=== PATIENT | female | born 1960 | race Caucasian/White ===

== ENCOUNTER → 2016-05-02 | Outpatient (CLI) | payer OTHER ==
--- NOTE | 2016-05-02 19:10 | Diagnostic Imaging Report ---
EXAMINATION: Digital mammogram bilateral screening. INDICATION: Screening. COMPARISON: This study was compared to the prior exams of 04/27/2015, 09/01/2013, and 05/06/2012. At this time, there are no current complaints. The current study was also evaluated with a Computer Aided Detection (CAD) system. FINDINGS: The fibroglandular tissue in both breasts is heterogeneously dense. This does limit the sensitivity of this exam. Overall, there does not appear to have been any significant change when compared to the prior study. No primary or secondary sign of malignancy is noted. IMPRESSION: There is no radiographic evidence for malignancy. ACR BI-RADS Category 2: Benign findings. Result letter will be mailed to the patient. Note: At least 10% of breast cancer is not imaged by mammography. Dictated by: Dictated on workstation # [id number]
== END ==
LOC: RAD 09:15
PROVIDERS: ATTEND Family Medicine
DX: Z12.31 Encounter for screening mammogram for malignant neoplasm of breast (principal)

== ENCOUNTER → 2017-05-06 | Outpatient (CLI) | payer OTHER ==
--- NOTE | 2017-05-06 09:10 | Diagnostic Imaging Report ---
Indication: Routine screening. Comparison: Comparison is made with prior exam from 05/02/2016 and 04/27/2015. Findings: Scattered parenchymal densities are noted bilaterally. No dominant mass or malignant-appearing microcalcifications are seen. There are benign calcifications bilaterally. The axillae are unremarkable. Impression: BI-RADS category 2 No mammographic features suspicious for malignancy are identified. ACR BI-RADS Category 2: Benign findings. Result letter will be mailed to the patient. Note: At least 10% of breast cancer is not imaged by mammography. Dictated on workstation # [id number]
== END ==
LOC: RAD 06:49
PROVIDERS: ATTEND Family Medicine
DX: Z12.31 Encounter for screening mammogram for malignant neoplasm of breast (principal)
CPT/HCPCS: 77067

== ENCOUNTER 2018-01-02 08:52 | Outpatient (CLI) | payer OTHER ==
[~2018-01-02] VITALS: Ht 165.1 cm; Wt 92.6 kg
[2018-01-02 09:06] VITALS: BP 118/70
[2018-01-02 09:53] LABS: BASOPHILS % (AUTO) 0 % (0-10); EOSINOPHILS # (AUTO) 0.2 10^3/uL (0.0-0.3); EOSINOPHILS % (AUTO) 2 % (0-10); HEMATOCRIT 41 % (35-52); HEMOGLOBIN 13.5 G/DL (11.5-16.0); LYMPHOCYTES # (AUTO) 1.9 X 10^3 (1.0-4.0); LYMPHOCYTES % (AUTO) 27 % (12-44); MEAN CORPUSCULAR HEMOGLOBIN 29 PG (25-34); MEAN CORPUSCULAR HGB CONC 33 G/DL (32-36); MEAN CORPUSCULAR VOLUME 89 FL (80-99); MEAN PLATELET VOLUME 10.3 FL (7.4-10.4); MONOCYTES # (AUTO) 0.4 X 10^3 (0.0-1.0); MONOCYTES % (AUTO) 6 % (0-12); NEUTROPHILS # (AUTO) 4.4 X 10^3 (1.8-7.8); NEUTROPHILS % (AUTO) 64 % (42-75); PLATELET COUNT 233 10^3/uL (130-400); RED BLOOD COUNT 4.61 10^6/uL (4.35-5.85); RED CELL DISTRIBUTION WIDTH 13.9 % (10.0-14.5); WHITE BLOOD COUNT 6.9 10^3/uL (4.3-11.0)
[2018-01-02 09:54] LABS: BILIRUBIN,URINE NEGATIVE (NEGATIVE); CLARITY,URINE CLEAR; COLOR,URINE YELLOW; GLUCOSE, URINE (UA) NEGATIVE (NEGATIVE); KETONES,URINE NEGATIVE (NEGATIVE); LEUKOCYTE ESTERASE ,URINE NEGATIVE (NEGATIVE); NITRITE,URINE NEGATIVE (NEGATIVE); PH,URINE 7 (5-9); PROTEIN,URINE NEGATIVE (NEGATIVE); UROBILINOGEN,URINE NORMAL (NORMAL)
[2018-01-02 10:02] LABS: BACTERIA,URINE MODERATE /HPF
[2018-01-02 10:05] LABS: PROTHROMBIN TIME PATIENT 13.2 SEC (12.2-14.7)
[2018-01-02 10:12] LABS: ALANINE AMINOTRANSFERASE 13 U/L (0-55); ALBUMIN 4.3 GM/DL (3.2-4.5); ALKALINE PHOSPHATASE 80 U/L (40-136); BUN/CREATININE RATIO 19; CALCIUM 9.7 MG/DL (8.5-10.1); CARBON DIOXIDE 27 MMOL/L (21-32); CHLORIDE 105 MMOL/L (98-107); CREATININE SERUM 0.75 MG/DL (0.60-1.30); GFR ESTIMATED > 60; GLUCOSE 98 MG/DL (70-105); POTASSIUM 3.9 MMOL/L (3.6-5.0); SODIUM 139 MMOL/L (135-145); TOTAL PROTEIN 7.8 GM/DL (6.4-8.2)
[2018-01-02 10:18] LABS: ERYTHROCYTE SEDIMENTATION RATE 17 MM/HR (0-30)
--- NOTE | 2018-01-02 11:31 | Diagnostic Imaging Report ---
Indication: Preop knee arthroplasty PA and lateral chest Heart size and pulmonary vascularity are normal. Lungs are clear. There are no effusions or pneumothoraces. Impression: Negative chest. Dictated by: Dictated on workstation # [id number]
== END 2018-01-02 12:03 | disposition home or self-care (01) ==
LOC: PREOP 08:52
PROVIDERS: ATTEND Orthopaedic Surgery
DX: Z01.811 Encounter for preprocedural respiratory examination (principal); Z01.812 Encounter for preprocedural laboratory examination; Z11.2 Encounter for screening for other bacterial diseases; M17.12 Unilateral primary osteoarthritis, left knee; R53.83 Other fatigue
CPT/HCPCS: 36415; 71046; 80053; 81000; 85025; 85610; 85652; 86850; 86900; 86901; 87081; 93005

== ENCOUNTER 2018-01-14 05:55 | Inpatient (IN) | payer OTHER ==
--- NOTE | 2018-01-05 12:06 | HISTORY AND PHYSICAL ---
DATE OF SERVICE: ADMISSION HISTORY AND PHYSICAL This will be for inpatient admission on 01/14/2018, for left total knee arthroplasty. HISTORY: The patient is a 57-year-old female with complaints of progressively worsening left knee pain. She has tried physical therapy as well as weight loss and activity modifications and anti-inflammatories. She reports marked functional impairment because of the knee. She reports pain on the medial and anterior aspects of the knee. She reports difficulty with stairs and prolonged walking. She denies hip pain, back pain and paresthesias. Of note, she underwent an open partial meniscectomy in the late 1970s. Due to functional impairment and failure to improve with conservative measures, the patient elected to proceed with surgical intervention. REVIEW OF SYSTEMS: No chest pain. No shortness of breath. No dysuria. PAST MEDICAL HISTORY: Unremarkable. PAST SURGICAL HISTORY: Left knee arthroscopy, bilateral carpal tunnel and tubal ligation. FAMILY HISTORY: Significant for diabetes. PRIMARY CARE PROVIDER: Dr. Kam. MEDICATIONS: No current medications. ALLERGIES: SUCCINYLCHOLINE. SOCIAL HISTORY: The patient denies alcohol and tobacco use. RADIOGRAPHS: Revealed complete loss of medial patellofemoral joint space with moderate lateral joint space narrowing and osteophytes in all three compartments. PHYSICAL EXAMINATION: GENERAL: The patient is well developed, well-nourished, in no acute distress. HEENT: Normocephalic, atraumatic. Pupils are equal, round and . CHEST: Clear. NECK: Supple, no lymphadenopathy. LUNGS: Clear to auscultation bilaterally. HEART: Regular rate and rhythm. ABDOMEN: Soft, nontender, nondistended. EXTREMITIES: The patient ambulates with an antalgic gait. There is a well-healed medial incision at her left knee. There is no erythema or warmth. She has a slight effusion. She has marked patellofemoral crepitus with range of motion of 0/3/120. No varus valgus laxity. Negative anterior and posterior drawer. She has mild varus alignment. IMPRESSION: Severe left knee osteoarthritis, unresponsive to conservative measures. PLAN: Left total knee arthroplasty. The risks, benefits, options, ramifications and recovery were discussed at length with the patient. She understands and wishes to proceed. Of note, she will require inpatient admission due to pain management, gait abnormalities and weakness. Job ID: [id number] DocumentID: [id number] Dictated Date: 01/05/2018 10:35:11 Metal Fence Erector Date: 01/05/2018 12:05:16 Dictated By: MAGDY SAMSON MD
[~2018-01-14] VITALS: Ht 165.1 cm; Wt 92.6 kg
--- OUTSIDE RECORDS SUMMARY | 2018-01-14 06:03 | XMS REPORT | Continuity of Care Document ---
Author Author [facility] Organization [facility] Address Unknown Phone Unavailable Allergies Active Description Code Type Severity Reaction Onset Reported/Identified Relationship to Patient Clinical Status Yes succinylcholine [id number] Drug Allergy Unknown N/A 05/25/2015 Yes succinylcholine [id number] Drug Allergy Severe DIFFICULTY WAKI 01/02/2018 Medications There is no data. Problems Date Dx Coded Attending Type Code Diagnosis Diagnosed By 03/03/2014 TENA MCFARLAND MD, Ot V76.12 03/07/2014 TENA MCFARLAND MD Ot V76.12 05/22/2015 TENA MCFARLAND MD, Ot V76.12 05/22/2015 Ot Z12.31 05/22/2015 TENA MCFARLAND MD, Ot V76.12 05/22/2015 Ot Z12.31 05/29/2015 HARMONY RO, RHONDA Traylor Ot Z12.11 ENCOUNTER FOR SCREENING FOR MALIGNANT NE 05/03/2016 TENA MCFARLAND MD, Ot Z12.31 ENCNTR SCREEN MAMMOGRAM FOR MALIGNANT NE 04/29/2017 TENA MCFARLAND MD, Ot Z12.31 ENCNTR SCREEN MAMMOGRAM FOR MALIGNANT NE 05/02/2017 TENA MCFARLAND MD, Ot Z12.31 ENCNTR SCREEN MAMMOGRAM FOR MALIGNANT NE 05/07/2017 TENA MCFARLAND MD, Ot Z12.31 ENCNTR SCREEN MAMMOGRAM FOR MALIGNANT NE 05/07/2017 TENA MCFARLAND MD, Ot Z12.31 ENCNTR SCREEN MAMMOGRAM FOR MALIGNANT NE 01/02/2018 MALI RO, MAGDY Balderas Ot M17.12 UNILATERAL PRIMARY OSTEOARTHRITIS, LEFT 01/02/2018 MAGDY SAMSON MD Ot R53.83 OTHER FATIGUE 01/02/2018 MAGDY SAMSON MD Ot Z01.811 ENCOUNTER FOR PREPROCEDURAL RESPIRATORY 01/02/2018 MAGDY SAMSON MD Ot Z01.812 ENCOUNTER FOR PREPROCEDURAL LABORATORY E 01/02/2018 MAGDY SAMSON MD, Ot Z11.2 ENCOUNTER FOR SCREENING FOR OTHER BACTER 01/05/2018 MAGDY SAMSON MD, Ot M17.12 UNILATERAL PRIMARY OSTEOARTHRITIS, LEFT 01/05/2018 MAGDY SAMSON MD, Ot R53.83 OTHER FATIGUE 01/05/2018 MAGDY SAMSON MD, Ot Z01.811 ENCOUNTER FOR PREPROCEDURAL RESPIRATORY 01/05/2018 MAGDY SAMSON MD, Ot Z01.812 ENCOUNTER FOR PREPROCEDURAL LABORATORY E 01/05/2018 MAGDY SAMSON MD, Ot Z11.2 ENCOUNTER FOR SCREENING FOR OTHER BACTER 01/14/2018 BARTOLO RO, TENA Celestin Ot Z12.31 ENCNTR SCREEN MAMMOGRAM FOR MALIGNANT NE Procedures There is no data. Results Test Result Range Complete urinalysis with reflex to culture - 01/02/18 09:35 Urine color determination YELLOW NRG Urine clarity determination CLEAR NRG Urine pH measurement by test strip 7 5-9 Specific gravity of urine by test strip 1.010 1.016- 1.022 Urine protein assay by test strip, semi-quantitative NEGATIVE NEGATIVE Urine glucose detection by automated test strip NEGATIVE NEGATIVE Erythrocytes detection in urine sediment by light microscopy NEGATIVE NEGATIVE Urine ketones detection by automated test strip NEGATIVE NEGATIVE Urine nitrite detection by test strip NEGATIVE NEGATIVE Urine total bilirubin detection by test strip NEGATIVE NEGATIVE Urine urobilinogen measurement by automated test strip (mass/volume) NORMAL NORMAL Urine leukocyte esterase detection by dipstick NEGATIVE NEGATIVE Automated urine sediment erythrocyte count by microscopy (number/high power field) NONE NRG Automated urine sediment leukocyte count by microscopy (number/high power field ) NONE NRG Bacteria detection in urine sediment by light microscopy MODERATE NRG Squamous epithelial cells detection in urine sediment by light microscopy 2-5 NRG Crystals detection in urine sediment by light microscopy NONE NRG Casts detection in urine sediment by light microscopy NONE NRG Mucus detection in urine sediment by light microscopy NEGATIVE NRG Complete urinalysis with reflex to culture NO NRG Complete blood count (CBC) with automated white blood cell (WBC) differential - 01/02/18 09:40 Blood leukocytes automated count (number/volume) 6.9 10*3/uL 4.3-11.0 Blood erythrocytes automated count (number/volume) 4.61 10*6/uL 4.35-5.85 Venous blood hemoglobin measurement (mass/volume) 13.5 g/dL 11.5-16.0 Blood hematocrit (volume fraction) 41 % 35-52 Automated erythrocyte mean corpuscular volume 89 [foz_us] 80-99 Automated erythrocyte mean corpuscular hemoglobin (mass per erythrocyte) 29 pg 25-34 Automated erythrocyte mean corpuscular hemoglobin concentration measurement ( mass/volume) 33 g/dL 32-36 Automated erythrocyte distribution width ratio 13.9 % 10.0-14.5 Automated blood platelet count (count/volume) 233 10*3/uL 130-400 Automated blood platelet mean volume measurement 10.3 [foz_us] 7.4-10.4 Automated blood neutrophils/100 leukocytes 64 % 42-75 Automated blood lymphocytes/100 leukocytes 27 % 12-44 Blood monocytes/100 leukocytes 6 % 0-12 Automated blood eosinophils/100 leukocytes 2 % 0-10 Automated blood basophils/100 leukocytes 0 % 0-10 Blood neutrophils automated count (number/volume) 4.4 10*3 1.8-7.8 Blood lymphocytes automated count (number/volume) 1.9 10*3 1.0-4.0 Blood monocytes automated count (number/volume) 0.4 10*3 0.0-1.0 Automated eosinophil count 0.2 10*3/uL 0.0-0.3 Automated blood basophil count (count/volume) 0.0 10*3/uL 0.0-0.1 PT panel in platelet poor plasma by coagulation assay - 01/02/18 09:40 Prothrombin time (PT) in platelet poor plasma by coagulation assay 13.2 s 12.2-14.7 INR in platelet poor plasma or blood by coagulation assay 1.0 0.8-1.4 Comprehensive metabolic panel - 01/02/18 09:40 Serum or plasma sodium measurement (moles/volume) 139 mmol/L 135-145 Serum or plasma potassium measurement (moles/volume) 3.9 mmol/L 3.6-5.0 Serum or plasma chloride measurement (moles/volume) 105 mmol/L 98-107 Carbon dioxide 27 mmol/L 21-32 Serum or plasma anion gap determination (moles/volume) 7 mmol/L 5-14 Serum or plasma urea nitrogen measurement (mass/volume) 14 mg/dL 7-18 Serum or plasma creatinine measurement (mass/volume) 0.75 mg/dL 0.60-1.30 Serum or plasma urea nitrogen/creatinine mass ratio 19 NRG Serum or plasma creatinine measurement with calculation of estimated glomerular filtration rate > NRG Serum or plasma glucose measurement (mass/volume) 98 mg/dL 70-105 Serum or plasma calcium measurement (mass/volume) 9.7 mg/dL 8.5-10.1 Serum or plasma total bilirubin measurement (mass/volume) 1.0 mg/dL 0.1-1.0 Serum or plasma alkaline phosphatase measurement (enzymatic activity/volume) 80 U/L 40-136 Serum or plasma aspartate aminotransferase measurement (enzymatic activity/ volume) 16 U/L 5-34 Serum or plasma alanine aminotransferase measurement (enzymatic activity/volume ) 13 U/L 0-55 Serum or plasma protein measurement (mass/volume) 7.8 g/dL 6.4-8.2 Serum or plasma albumin measurement (mass/volume) 4.3 g/dL 3.2-4.5 CALCIUM CORRECTED 9.5 mg/dL 8.5-10.1 Erythrocyte sedimentation rate by westergren method - 01/02/18 09:40 Erythrocyte sedimentation rate by westergren method 17 mm 0-30 Blood type T Indirect antibody screen panel - 01/02/18 09:40 ABO+Rh group OP NRG Blood group antibody screen NEGATIVE NRG Methicillin resistant Staphylococcus aureus (MRSA) screening culture - 09:40 Methicillin resistant Staphylococcus aureus (MRSA) screening culture NEG NRG Encounters ACCT No. Visit Date/Time Discharge Status Pt. Type Provider Facility Loc./Unit Complaint [id number] 01/02/2018 08:52:00 01/02/2018 12:03:00 DIS Outpatient MALI RO, MAGDY Balderas [facility] PREOP LEFT KNEE OSTEOARTHRITIS [id number] 05/06/2017 06:49:00 05/06/2017 23:59:59 CLS Outpatient TENA MCFARLAND MD [facility] RAD SCREENING MAMMO [id number] 05/02/2016 09:15:00 05/02/2016 23:59:59 CLS Outpatient ETNA MCFARLAND MD [facility] RAD SCREENING [id number] 05/29/2015 07:11:00 05/29/2015 13:24:00 DIS Outpatient HARMONY RO, RHONDA Traylor [facility] SDC SCREENING [id number] 05/25/2015 05:54:00 05/25/2015 23:59:59 CLS Outpatient RHONDA ANTUNEZ MD [facility] PREOP [id number] 09/01/2013 08:58:00 09/01/2013 23:59:59 CLS Outpatient BARTOLO RO, TENA Celestin [facility] RAD [id number] 08/20/2012 11:55:00 08/20/2012 23:59:59 CLS Outpatient [id number] 01/14/2018 05:55:00 ACT Inpatient MALI RO, MAGDY Balderas [facility] SURG LEFT KNEE OSTEOARTHRITIS [id number] 04/27/2015 10:11:00 Document Registration
[2018-01-14] MEDS ORDERED: ONDANSETRON 4 MG/2 ML (SDV) Z0FRAN ONE (06:34)
[2018-01-14] MEDS ORDERED: LACTATED RINGERS 1,000 ML IV ONE (06:34)
[2018-01-14] MEDS ORDERED: ROCURONIUM 10 MG/ML 5 ML SYRINGE IV ONE (06:34)
[2018-01-14] MEDS ORDERED: fentaNYL INJECTION 100 MCG/2 ML AMP ONE (06:34)
[2018-01-14] MEDS ORDERED: LIDOCAINE PF 2% 5 ML (XYLOCAINE) VIAL ONE (06:34)
[2018-01-14] MEDS ORDERED: proPOfol 200 MG/20 ML (DIPRIVAN) VIAL IV ONE (06:34)
[2018-01-14] MEDS ORDERED: MIDAZOLAM 2 MG/2 ML (VERSED) VIAL ONE (06:35)
[2018-01-14] MEDS ORDERED: DEXAMETHASONE 10 MG/ML (DECADRON) 1 ML VIAL ONE (06:40)
[2018-01-14] MEDS ORDERED: SEVOFLURANE (ULTANE) 15 ML INHAL SOLN ONE ×7 (06:40→09:12)
[2018-01-14] MEDS ORDERED: NS (IVPB) 50 ML ONE (06:43)
[2018-01-14] MEDS ORDERED: CEFUROXIME 1.5 GM (ZINACEF) VIAL ONE (06:43)
[2018-01-14] MEDS ORDERED: ONDANSETRON 4 MG/2 ML (SDV) Z0FRAN IVP PRN ×2 (07:15→09:30)
[2018-01-14] MEDS ORDERED: diphenhydrAMINE 50 MG/ML INJ (BENADRYL) IVP PRN (07:15)
[2018-01-14] MEDS ORDERED: morphine PCA 100 MG/100 ML BAG IV PRN (07:15)
[2018-01-14] MEDS ORDERED: ACETAMINOPHEN 325 MG TABLET PO PRN (07:15)
--- NOTE | 2018-01-14 07:27 | Progress Note-Post Operative ---
Post-Operative Progess Note Surgeon (s)/Road Oiler (s) Surgeon MAGDY SAMSON MD Road Oiler: [place] Pre-Operative Diagnosis left knee primary osteoarthritis Post-Operative Diagnosis left knee primary osteoarthritis Procedure & Operative Findings Date of Procedure 01/14/18 Procedure Performed/Findings left total knee arthroplasty Anesthesia Type GETA Estimated Blood Loss Estimated blood loss (mL): minimal Specimens/Packing Specimens Removed none Packing: none MAGDY SAMSON MD Jan 14, 2018 07:27
--- NOTE | 2018-01-14 07:27 | Progress Note-Pre Operative ---
Pre-Operative Progress Note H&P Reviewed The H&P was reviewed, patient examined and no changes noted. Date Seen by Provider: Jan 14, 2018 Time Seen by Provider: 07:20 Date H&P Reviewed: Jan 14, 2018 Time H&P Reviewed: 07:11 Pre-Operative Diagnosis: left knee primary osteoarthritis MAGDY SAMSON MD Jan 14, 2018 07:27
[2018-01-14] MEDS ORDERED: OXYC1TAB87 PO (07:29)
--- NOTE | 2018-01-14 07:32 | D/C HH Face to Face Order ---
D/C Face to Face Orders Instructions for Patient Patient Instructions/FollowUp: three weeks Physician to follow Patient: three weeks Discharge Diet for Home: Regular Diet Patient Data-Allergies,Ht & Wt Patient Allergies: Coded Allergies: succinylcholine (Verified Allergy, Severe, DIFFICULTY WAKINE UP, WAS ON VENT, 01/02/18) Height (Feet): 5 Height (Inches): 5.00 Weight (Pounds): 204 Weight (Ounces): 3.0 Home Health Need/Face to Face Date of Face to Face: Jan 14, 2018 Clinical Findings: Instability, Muscle weakness, Pain with ambulation I have seen Pt [id number]: Yes Discharged To: Home Diagnosis/Conditions: left total knee arthroplasty Patient is Homebound due to: Darvin fall risk due to instabilty, Muscle weakness , Pain w/ambulation Homebound Status Due to the above stated illness, injury or surgical procedure (medical condition or diagnosis) and associated clinical findings, the patient is homebound because of his/her inability to leave home except with aid of a supportive device and/or person AND leaving the home requires a considerable and taxing effort or is medically contraindicated. Pt req the following assistanc: Walker Home Health Nursing Orders Home Health Services Order: Physical Therapy-Evaluate & Treat Therapy Orders Therapy Orders: Physical Therapy, PT to assess for OT Therapy Specific Orders: Eval assistive deivces, Teach enviro modifications/ safety, Gait training, Increase strength/endurance, Restore ROM DC left knee misha and apply steri strips on 01/28/18 Certify Stmt I certify that this patient is under my care and that I, a nurse practitioner or a physician; a clinical lab assistant working with me, had a face to face encounter that - meets the physician face to face encounter requirements with this patient as dated. MAGDY SAMSON MD Jan 14, 2018 07:32
[2018-01-14] MEDS ORDERED: ROPIVACAINE 5MG/ML 30ML VIAL ONE (07:39)
[2018-01-14] MEDS ORDERED: LACTATED RINGERS 1,000 ML IV PRN (07:52)
[2018-01-14] MEDS ORDERED: CEFUROXIME INJECTION 1,500 MG in NS (IVPB) 50 ML IV ONE (08:00)
[2018-01-14] MEDS ORDERED: INTRA-ARTICULAR IU ONE ×5 (08:30)
[2018-01-14] MEDS ORDERED: NEOSTIGMINE 1 MG/ML 5 ML SYRINGE ONE (08:58)
[2018-01-14] MEDS ORDERED: TRANEXAMIC ACID 100 MG/ML 10 ML INJECTION IV ONE (08:58)
[2018-01-14] MEDS ORDERED: GLYCOPYRROLATE 0.2 MG/ML (ROBINUL) 2 ML VIAL ONE (08:58)
[2018-01-14] MEDS ORDERED: HYDROmorphone 2 MG/ML VIAL (DILAUDID) IV ONE (09:30)
[2018-01-14] MEDS ORDERED: MEPERIDINE (DEMEROL) INJ 50 MG/ML IVP ONE (09:30)
[2018-01-14] MEDS ORDERED: morphine INJ 10 MG/ML 1ML (SYR OR VIAL) IVP ONE (09:30)
--- NOTE | 2018-01-14 09:54 | Diagnostic Imaging Report ---
INDICATION: Osteoarthritis. 2 views were obtained. FINDINGS: There are postsurgical changes of left knee arthroplasty. Hardware is in satisfactory position. Alignment is normal. There is no fracture or dislocation. IMPRESSION: Stable postsurgical changes of the left knee arthroplasty. Dictated by: Dictated on workstation # [id number]
--- NOTE | 2018-01-14 10:23 | Progress Note-Standard ---
Standard Progress Note Progress Notes/Assess & Plan Date Seen by a Provider: Jan 14, 2018 Time Seen by a Provider: 10:10 Progress/Assessment & Plan post op check no complaints denies paresthesias radiographs--HW well positioned without fracture LLE--2 plus DP and PT pulse with brisk cap refill. Intact DF and PF of toes and ankle. Sensation intact throughout s/p LTKA mobilize as able MAGDY SAMSON MD Jan 14, 2018 10:23
[2018-01-14 10:41] VITALS: BP 114/57
[2018-01-14] MEDS: NS IV 1000 ML 1,000 ML IV SCH ×2 (11:24→21:14)
[2018-01-14] MEDS: SENNA W/DOCUSATE (SENOKOT S) TABLET PO SCH ×2 (11:39→19:36)
[2018-01-14 12:00] VITALS: BP 114/55
--- NOTE | 2018-01-14 14:40 | Physical Therapy Evaluation ---
PT Evaluation-General Medical Diagnosis Admission Date Jan 14, 2018 at 05:55 Medical Diagnosis: s/p L TKA Onset Date: Jan 14, 2018 Therapy Diagnosis Therapy Diagnosis: impaired mobility, strength, ROM s/p L TKA Height/Weight Height (Feet): 5 Height (Inches): 5.00 Weight (Pounds): 204 Weight (Ounces): 3.0 Precautions Precautions/Isolations: Fall Prevention, Standard Precautions Weight Bear Status Right Lower Extremity: Right Full Weight Bearing Left Lower Extremity: Left Weight Bearing/Tolerated Referral Physician: Saige Reason for Referral: Evaluation/Treatment Medical History Current History s/p L TKA Reviewed History: Yes Social History Home: Single Level Current Living Status: Spouse Entry Into Home: Stairs With Railing PT Steps Into Home: 1 PT Steps Inside Home: 2 Prior/Core FIM Prior Level of Function Functional [place] Measure 0=Not Assessed/NA 4=Minimal Assistance 1=Total Assistance 5=Supervision or Setup 2=Maximal Assistance 6=Modified [place] 3=Moderate Assistance 7=Complete [place] Bed Mobility: 7 Transfers (B,C,W/C) (FIM): 7 Gait: 7 PT Evaluation-Current Subjective pt in bed pre tx, agrees to PT, pain 3/10 at rest, 8/10 w/ activity L knee Pt/Family Goals to be independent at home Objective Patient Orientation: Person, Place, Time ROM/Strength ROM Lower Extremities RLE WFL L knee +5 extension, 75 flexion Strength Lower Extremities RLE grossly 4/5 Neuromuscular (Tone, Coordination, Reflexes) NT Sensory Vision: Functional Hearing: Functional Sensation Right Lower Extremit: Intact Sensation Left Lower Extremity: Intact Transfers Functional [place] Measure 0=Not Assessed/NA 4=Minimal Assistance 1=Total Assistance 5=Supervision or Setup 2=Maximal Assistance 6=Modified [place] 3=Moderate Assistance 7=Complete [place] Transfers (B, C, W/C) (FIM): 4 Scootin Rollin Supine to/from Sit: 5 Sit to/from Stand: 4 supine<->sit SBA, sit<->stand CGA for safety Gait Mode of Locomotion: Walk Anticipated Mode of Locomotion: Walk Gait (FIM): 1 Distance (FIM): 1=up to 49 ft Distance: 30' Gait Level of Assist: 4 Gait Persons Needed: 1 Gait Assistive Device: FWW Comments/Gait Description pt ambulates 30' w/ CGA, slow w/ short steps, but steady, pt appears to be able to ambulate further but felt very nauseous so discontinued after 30' Balance Sitting Static: Normal Sitting Dynamic: Normal Standing Static: Normal Standing Dynamic: Normal Treatment TKA protocol - AP, HS, SLR, SAQs, QS x10 Assessment/Needs impaired mobility, strength, and ROM s/p L TKA, pt has good bed mobility and WB in LLE Rehab Potential: Fair PT Short Term Goals Short Term Goals Time Frame: Jan 21, 2018 Transfers (B,C,W/C) (FIM): 5 Gait (FIM): 4 Gait Distance Comment: >200' Gait Level of Assist: 4 Gait Assistive Device: FWW PT Plan Problem List Problem List: Activity Tolerance, Functional Strength, Safety, Balance, Gait, Transfer, Bed Mobility, ROM Treatment/Plan Treatment Plan: Continue Plan of Care Treatment Plan: Bed Mobility, Education, Functional Activity Iram, Functional Strength, Gait, Safety, Therapeutic Exercise, Transfers Treatment Duration: Jan 21, 2018 Frequency: 11 times per week Estimated Hrs Per Day: .25 hour per day (15-30') Patient and/or Family Agrees t: Yes Safety Risks/Education Patient Education: Gait Training, Transfer Techniques, Correct Positioning, Safety Issues Teaching Recipient: Patient Teaching Methods: Demonstration, Discussion Response to Teaching: Reinforcement Needed Discharge Recommendations Plan progress functional ROM, gait, and transfers Therapy D/C Recommendations: Home w/ Family Support Time/GCodes Time In: 1410 Time Out: 1435 Total Billed Treatment Time: 25 Total Billed Treatment 1 visit EVL 15' EX 10' TRE DO PT Jan 14, 2018 14:40
[2018-01-14] MEDS ORDERED: FLU QUADRIvalent (5+ YOA) 2018-2019 (AFLURIA) 0.5 ML IM ONE (15:00)
--- NOTE | 2018-01-14 15:50 | OPERATIVE REPORT ---
DATE OF SERVICE: 01/14/2018 PREOPERATIVE DIAGNOSIS: Left knee primary osteoarthritis. POSTOPERATIVE DIAGNOSIS: Left knee primary osteoarthritis. PROCEDURE: Left total knee arthroplasty. SURGEON: Virgil Moulton MD. HARNESS CUTTER: ROBIN Braun, who assisted throughout the procedure and closed the incision. ANESTHESIA: General endotracheal by Ruben Cruz CRNA. TOURNIQUET TIME: Approximately 68 minutes at 300 mmHg. ESTIMATED BLOOD LOSS: Minimal. DRAINS: None. COMPLICATIONS: None. POSTOPERATIVE PLAN: Routine total knee arthroplasty protocol. MATERIALS: MicroPort cemented size 4 femur with a cemented size 4 tibia and a 12 mm insert with a cemented size 32 patellar button. The patient was transferred to recovery room awake and in stable condition. STATEMENT OF MEDICAL NECESSITY: The patient is a 57-year-old female with longstanding progressive left knee osteoarthritis. She had severe medial and patellofemoral arthrosis with bony sclerosis noted in both compartments in varus alignment. She had undergone treatment with injections, anti-inflammatories and activity modifications without relief. Due to functional impairment and failure to improve with conservative measures, the patient elected to proceed with surgical intervention. DESCRIPTION OF PROCEDURE: After risks and benefits of the procedure were discussed and questions were answered, an informed consent was signed and placed on chart. The operative site was confirmed in the preoperative holding area and initialed by the surgeon. The patient was then transported to the operating room, and after adequate levels of general endotracheal anesthetic were obtained and timeout was called confirming the operative site, the left lower extremity was then prepped and draped in the usual sterile fashion with the leg elevated and the knee flexed. Tourniquet was inflated to 300 mmHg. A standard anterior approach was utilized. Hemostasis was obtained with cautery. A medial parapatellar arthrotomy was performed leaving 1 cm cuff on the patella for later reattachment. A portion of the fat pad was resected and the ACL was resected. The intramedullary guide was passed into the distal femur and the cutting block was placed. A cut was made and the femur was sized to a size 4. The 4 cutting block was placed parallel to the epicondylar axis and cuts were made from posterior to anterior. A subperiosteal release was then carefully performed of the posterior distal femur as well as proximal medial tibia, being careful to stay on the bony surface. Intramedullary guide was then passed into the tibia. The cutting block was placed. The drop sarath transected the intermalleolar axis and a cut was made. The 4 baseplate was positioned and again the drop sarath transected the intermalleolar axis. This was prepared with a drill and keel punch. The femoral trial was placed and the trochlear cut was made. A 12-mm insert was placed and the patella was prepared using the freehand technique by resecting 10 mm off the undersurface. Peg guide was placed and the peg holes were drilled. The 32 trial was placed. With the trials, the knee had full extension and greater than 120 degrees of flexion with gravity. The patella tracked well. There was no anterior/posterior laxity in flexion or extension. There was trace valgus laxity in full extension, otherwise no varus or valgus laxity throughout range of motion. The trials were removed. The joint was irrigated with pulse lavage. Periarticular block was placed in the posterior capsule, medial and lateral retinaculum and extensor mechanism as well as the subcutaneous tissues. The joint was further irrigated with pulse lavage. Bone ends were irrigated and dried and the tibial baseplate was cemented into position. Excessive cement was removed. The superior surface was irrigated and dried and the polyethylene insert was placed. The distal femur was irrigated and dried and the femoral prosthesis was cemented into position. Excessive cement was removed. The knee was brought out into full extension while the cement had cured. The undersurface of the patella was irrigated and dried and the patellar button was cemented into position. Excessive cement was removed. Once the cement had cured, the knee was taken through a range of motion. Full extension was obtained, 120 degrees of flexion with gravity was easily obtained. The patella tracked well. There was no anterior/posterior laxity in flexion or extension. There was trace valgus laxity in full extension, but otherwise no varus or valgus laxity. The joint was further irrigated with pulse lavage. The arthrotomy was closed with #2 Tevdek in [id number] interrupted fashion. The patella tracked well and the repair was stable with flexion and extension. The subcutaneous tissues were irrigated and dried. 0 Vicryl was used for the deep subcutaneous tissue, 2-0 Vicryl for the superficial subcutaneous tissue, misha were used on the skin. A soft dressing was applied, the tourniquet was deflated and the patient was transported to the recovery room awake and in stable condition. Job ID: [id number] DocumentID: [id number] Dictated Date: 01/14/2018 09:21:53 Art Editor Date: 01/14/2018 15:49:34 Dictated By: VIRGIL MOULTON MD
[2018-01-14 16:50] VITALS: BP 136/63
--- NOTE | 2018-01-14 17:10 | Consultation ---
History of Present Illness History of Present Illness Patient Consulted On(beck/time) 01/14/18 17:06 Date Seen by Provider: Jan 14, 2018 Time Seen by Provider: 17:00 Reason for Visit: Left knee replacement History of Present Illness 57-year-old female admitted this morning for left total knee replacement due to severe degenerative joint disease. She is in her normal state of health and voices no medical complaints. She currently is in good spirits and has no complaints other than she is slightly nauseated after the surgery but it's already improved. Allergies and Home Medications Allergies Coded Allergies: succinylcholine (Verified Allergy, Severe, DIFFICULTY WAKINE UP, WAS ON VENT, 01/02/18) Home Medications Oxycodone HCl/Acetaminophen 1 Each Tablet, 1 EACH PO Q4H PRN for PAIN-MODERATE Prescribed by: MAGDY SAMSON on 01/14/18 1681 Patient Home Medication List Home Medication List Reviewed: Yes Past Dkizeoj-Dhpwct-Xsvnsy Hx Patient Social History Alcohol Use: Denies Use Recreational Drug Use: No Smoking Status: Never a Smoker Recent Foreign Travel: No Contact w/Someone Who Travel: No Recent Infectious Disease Expo: No Recent Hopitalizations: No Seasonal Allergies Seasonal Allergies: No Past Medical History Surgeries: Yes (LEFT KNEE CASRTLIDGE REMOVED, BOTH WRISTS) Respiratory: No Cardiac: No Neurological: No Sexually Transmitted Disease: No HIV/AIDS: No Genitourinary: No Gastrointestinal: No Musculoskeletal: Yes (MILD ARTHRITIS IN HANDS) Arthritis Endocrine: No HEENT: Yes (GLASSES) Loss of Vision: Bilateral Hearing Impairment: Denies Cancer: No Psychosocial: No Integumentary: No Blood Disorders: No Adverse Reaction/Blood Tranf: No (N/A) Review of Systems-General Constitutional: see HPI Physical Exam-General Problems Physical Exam Vital Signs Vital Signs - First Documented 01/14/18 01/14/18 10:30 10:41 Temp 96.4 Pulse 77 Resp 14 B/P (MAP) 114/57 (76) Pulse Ox 98 O2 Delivery OxyMask O2 Flow Rate 2.00 Capillary Refill : Less Than 3 Seconds General Appearance: no apparent distress Eyes: Bilateral Eye Normal Inspection HEENT: pharynx normal Neck: supple Respiratory: lungs clear Cardiovascular: regular rate, rhythm Gastrointestinal: soft Rectal: deferred Back: normal inspection Extremities: other (Patient has splint on left knee) Neurologic/Psychiatric: radiography technician II-XII nml as tested, alert, oriented x 3 Skin: normal color Assessment/Plan Assessment/Plan Admission Diagnosis/Plan 1. Severe degenerative joint disease of the left knee -Consultation appreciated. -We'll continue to follow along with you. -I have made patient aware that should any medical issues become apparent during the course of her stay, I will come and evaluate her. -For now she does not have any home medications that she takes on a daily basis. She does have available already written Zofran for nausea.- Admission Status: Inpatient Order (span 2 midnights) Reason for Inpatient Admission: Left total knee replacement Clinical Quality Measures DVT/VTE Risk/Contraindication: Risk Factor Score Per Nursin RFS Level Per Nursing on Admit: 3=High TENA MCFARLAND MD Jan 14, 2018 17:10
[2018-01-14] MEDS: CEFUROXIME INJECTION 750 MG in NS (IVPB) 50 ML IV SCH (17:15)
[2018-01-14 19:15] VITALS: BP 122/59
[2018-01-15] MEDS: NS IV 1000 ML 1,000 ML IV SCH ×2 (00:38→13:02)
[2018-01-15] MEDS: CEFUROXIME INJECTION 750 MG in NS (IVPB) 50 ML IV SCH (00:38)
[2018-01-15 00:40] VITALS: BP 124/59
[2018-01-15 04:52] VITALS: BP 116/60
[2018-01-15 06:02] LABS: HEMOGLOBIN 11.1 G/DL (11.5-16.0)
[2018-01-15] MEDS: MULTIVIT W/MINERALS TAB (THERAGRAN M) PO SCH (06:29)
--- NOTE | 2018-01-15 07:42 | Progress Note (SOAP) ---
Subjective Date Seen by a Provider: Jan 15, 2018 Time Seen by a Provider: 07:40 Subjective/Events-last exam No complaints. Good appetite. Objective Exam Vital Signs Date Time Temp Pulse Resp B/P (MAP) Pulse Ox O2 Delivery O2 Flow Rate FiO2 01/15/18 04:52 98.0 92 18 116/60 (78) 98 Room Air 01/15/18 00:40 97.8 87 18 124/59 (80) 100 Room Air 01/14/18 21:00 18 01/14/18 21:00 Room Air 01/14/18 19:15 97.1 90 18 122/59 (80) 95 Room Air 01/14/18 16:50 97.4 82 16 136/63 (87) 100 Room Air 01/14/18 12:00 97.5 72 16 114/55 (74) 95 OxyMask 2.00 01/14/18 10:41 96.4 77 14 114/57 (76) 98 OxyMask 2.00 01/14/18 10:30 98 OxyMask 2.00 I & O 01/15/18 07:00 Intake Total 2450 ml Output Total 3200 ml Balance -750 ml Capillary Refill : Less Than 3 Seconds General Appearance: No Apparent Distress Respiratory: Lungs Clear Cardiovascular: Regular Rate, Rhythm Results Lab Laboratory Tests 01/15/18 05:10: Hemoglobin 11.1L, Hematocrit 35 Assessment/Plan Assessment/Plan Assess & Plan/Chief Complaint 1. Severe degenerative joint disease of the left knee -Consultation appreciated. -We'll continue to follow along with you. -I have made patient aware that should any medical issues become apparent during the course of her stay, I will come and evaluate her. -For now she does not have any home medications that she takes on a daily basis. She does have available already written Zofran for nausea.- 01/15 -doing well. tolerating regular diet without nausea. regular IS Clinical Quality Measures DVT/VTE Risk/Contraindication: Risk Factor Score Per Nursin RFS Level Per Nursing on Admit: 3=High TENA MCFARLAND MD Jan 15, 2018 07:42
--- NOTE | 2018-01-15 07:59 | Progress Note-Standard ---
Standard Progress Note Progress Notes/Assess & Plan Date Seen by a Provider: Jan 15, 2018 Time Seen by a Provider: 07:58 Progress/Assessment & Plan post op check no complaints denies paresthesias radiographs--HW well positioned without fracture LLE--2 plus DP and PT pulse with brisk cap refill. Intact DF and PF of toes and ankle. Sensation intact throughout s/p LTKA mobilize as able Final Diagnosis No complaints Vital Signs Date Time Temp Pulse Resp B/P (MAP) Pulse Ox O2 Delivery O2 Flow Rate FiO2 01/15/18 04:52 98.0 92 18 116/60 (78) 98 Room Air 01/15/18 00:40 97.8 87 18 124/59 (80) 100 Room Air 01/14/18 21:00 18 01/14/18 21:00 Room Air 01/14/18 19:15 97.1 90 18 122/59 (80) 95 Room Air 01/14/18 16:50 97.4 82 16 136/63 (87) 100 Room Air 01/14/18 12:00 97.5 72 16 114/55 (74) 95 OxyMask 2.00 01/14/18 10:41 96.4 77 14 114/57 (76) 98 OxyMask 2.00 01/14/18 10:30 98 OxyMask 2.00 I & O 01/15/18 07:00 Intake Total 2450 ml Output Total 3200 ml Balance -750 ml Laboratory Tests Test 01/15/18 05:10 Range/Units Hemoglobin 11.1 L 11.5-16.0 G/DL Hematocrit 35 35-52 % LLE--dressing intact. NVI distally No calf tenderness. s/p LTKA doing well PT/OT MAGDY SAMSON MD Jan 15, 2018 07:59
[2018-01-15] MEDS ORDERED: ASPIRIN E.C. 81 MG (ECOTRIN) TAB PO SCH (08:00)
[2018-01-15] MEDS: oxyCODONE/APAP 5/325MG (PERCOCET 5) TABLET PO PRN ×5 (08:29→17:24)
[2018-01-15] MEDS: SENNA W/DOCUSATE (SENOKOT S) TABLET PO SCH ×2 (08:29→20:36)
[2018-01-15] MEDS: ENOXAPARIN 30 MG/0.3 ML (LOVENOX) SYR SC SCH ×2 (08:29→20:36)
[2018-01-15 08:37] VITALS: BP 112/50
--- NOTE | 2018-01-15 08:43 | Anesthesia-General Post-Op ---
General Significant Intra-Op Events Notes good pain relief with adductor canal block. Patient Condition Mental Status/LOC: Same as Preop Cardiovascular: Satisfactory Nausea/Vomiting: Absent Respiratory: Satisfactory Pain: Controlled Complications: Absent Post Op Complications Complications None Follow Up Care/Instructions Patient Instructions None needed. Anesthesia/Patient Condition Patient Condition Patient is doing well, no complaints, stable vital signs, no apparent adverse anesthesia problems. No complications reported per nursing. EVA HILL CRNA Jan 15, 2018 08:43
--- NOTE | 2018-01-15 09:01 | Physical Therapy Daily Note ---
PT Daily Note-Current Subjective Pt in restroom upon arrival. Pt agrees to PT and OIL SALES AND SERVICE REP assists pt at SBA to EOB. Pain Numeric Pain Scale: 10-Worst Possible Pain Location: Left Location Body Site: Knee Pain Description: Ache, Tightness Mental Status Patient Orientation: Person, Place, Time, Situation Attachments: Polar Pack, Other-See Comments (CPM), IV Transfers Functional [place] Measure 0=Not Assessed/NA 4=Minimal Assistance 1=Total Assistance 5=Supervision or Setup 2=Maximal Assistance 6=Modified [place] 3=Moderate Assistance 7=Complete IndependenceIRFPAI Quality Coding Scale 6 Independent with activity with or without an assistive device 5 Patient requires set up or clean up by helper. Patient completes activity by themselves 4 Supervision or touching assist (CGA). [place] provide cues , steadying assist 3 The helper provides less than half the effort to complete the activity 2 The helper provides more than half the effort to complete the activity 1 Dependent. The helper does all the effort to complete an activity 7 Patient refused to complete or attempt activity 9 The patient did not perform the activity before the current illness or injury 88 Not attempted due to Medical conditions or safety concerns Scootin Supine to/from Sit: 5 Sit to/from Stand: 5 Weight Bearing Right Lower Extremity: Right Full Weight Bearing Left Lower Extremity: Left Weight Bearing/Tolerated Gait Training Distance (FIM): 3=150 ft Gait Assistive Device: FWW Pt walks with slightly flexed L knee. Pt walks with normalized levi and doesn't demonstrate pain. Treatments Pt ambulates from restroom to EOB for SLOPE HOIST OPERATOR to take vitals. Nurse gives morning meds & Lovenox shot. Pt transfers from EOB using FWW at SBA then ambulates in hallway before returning to room. Pt lays Supine in bed and is able to scoots self up in bed for positioning to apply CPM (60 degrees) & polar pack. Pt resting with all needs met at end of tx. Assessment Current Status: Good Progress Pt reports pain but it does not limit pt's participation with PT. Pt moving better after stiffness at beginning of session. PT Short Term Goals Short Term Goals Time Frame: Jan 21, 2018 Transfers (B,C,W/C) (FIM): 5 Gait (FIM): 4 Gait Distance Comment: >200' Gait Level of Assist: 4 Gait Assistive Device: FWW PT Plan Problem List Problem List: Activity Tolerance, Functional Strength, Gait Treatment/Plan Treatment Plan: Continue Plan of Care Treatment Plan: Bed Mobility, Education, Functional Activity Iram, Functional Strength, Gait, Safety, Therapeutic Exercise, Transfers Treatment Duration: Jan 21, 2018 Frequency: 11 times per week Estimated Hrs Per Day: .25 hour per day (15-30') Patient and/or Family Agrees t: Yes Safety Risks/Education Patient Education: Gait Training, Transfer Techniques, Reviewed Use of Ice, Correct Positioning, Safety Issues Teaching Recipient: Patient Teaching Methods: Discussion Response to Teaching: Verbalize Understanding Time/GCodes Time In: 825 Time Out: 850 Total Billed Treatment Time: 25 Total Billed Treatment 1, GT (10m) & FA (15m) G Codes Necessary: SHANNAN Hector PTA Jan 15, 2018 09:01
[2018-01-15 12:00] VITALS: BP 111/56
--- NOTE | 2018-01-15 14:46 | Physical Therapy Daily Note ---
PT Daily Note-Current Subjective Patient in bed pre tx, agrees to PT, has pain of 10/10 when ambulating. Appearance Patient BTB post tx with nurse call, phone, tray, all needs met. Polar care on. Mental Status Patient Orientation: Normal For Age Attachments: Polar Pack, IV Transfers Functional [place] Measure 0=Not Assessed/NA 4=Minimal Assistance 1=Total Assistance 5=Supervision or Setup 2=Maximal Assistance 6=Modified [place] 3=Moderate Assistance 7=Complete IndependenceIRFPAI Quality Coding Scale 6 Independent with activity with or without an assistive device 5 Patient requires set up or clean up by helper. Patient completes activity by themselves 4 Supervision or touching assist (CGA). [place] provide cues , steadying assist 3 The helper provides less than half the effort to complete the activity 2 The helper provides more than half the effort to complete the activity 1 Dependent. The helper does all the effort to complete an activity 7 Patient refused to complete or attempt activity 9 The patient did not perform the activity before the current illness or injury 88 Not attempted due to Medical conditions or safety concerns Transfers (B, C, W/C) (FIM): 5 Scootin Rollin Supine to/from Sit: 5 Sit to/from Stand: 5 Steady, no LOB, occasional cues for positioning. Weight Bearing Right Lower Extremity: Right Full Weight Bearing Left Lower Extremity: Left Weight Bearing/Tolerated Gait Training Gait (FIM): 5 Distance: 200' Gait Level of Assist: 5 Gait Persons Needed: 1 Gait Assistive Device: FWW Good step-through ambulation, brisk pace, slightly flexed left knee. Exercises Supine Ex: Ankle pumps, Quad Set, Heel Slides, Short Arc Quads, Straight leg raise Supine Reps: 10 Treatments bed mobility and transfers, ambulation, functional strengthening, ROM Assessment Current Status: Fair Progress improving ambulation PT Short Term Goals Short Term Goals Time Frame: Jan 21, 2018 Transfers (B,C,W/C) (FIM): 5 Gait (FIM): 4 Gait Distance Comment: >200' Gait Level of Assist: 4 Gait Assistive Device: FWW PT Plan Problem List Problem List: Activity Tolerance, Functional Strength, Safety, Balance, Gait, Transfer, Bed Mobility, ROM Treatment/Plan Treatment Plan: Continue Plan of Care Treatment Plan: Bed Mobility, Education, Functional Activity Iram, Functional Strength, Gait, Safety, Therapeutic Exercise, Transfers Treatment Duration: Jan 21, 2018 Frequency: 11 times per week Estimated Hrs Per Day: .25 hour per day (15-30') Patient and/or Family Agrees t: Yes Safety Risks/Education Patient Education: Gait Training, Transfer Techniques, Correct Positioning, Safety Issues Teaching Recipient: Patient Teaching Methods: Demonstration, Discussion Response to Teaching: Reinforcement Needed Time/GCodes Time In: 1420 Time Out: 1438 Total Billed Treatment Time: 18 Total Billed Treatment 1 visit GT 18' MARIO MARIE PT Jan 15, 2018 14:45
--- NOTE | 2018-01-15 15:45 | Occupational Therapy Eval ---
OT Evaluation-General/PLF Medical Diagnosis Admission Date Jan 14, 2018 at 05:55 Medical Diagnosis: s/p L TKA Onset Date: Jan 14, 2018 Therapy Diagnosis Therapy Diagnosis: decr self care, decr funct mobility Height/Weight Height (Feet): 5 Height (Inches): 5.00 Weight (Pounds): 204 Weight (Ounces): 3.0 Precautions Precautions/Isolations: Fall Prevention, Standard Precautions Safety Interventions: None Weight Bear Status Weight Bearing Restriction: Weight Bearing/Tolerated Location Restriction: L LE Referral Physician: Saige Referral Reason: Evaluation/Treatment Medical History Pertinent Medical History: Arthritis Additional Medical History DJD. Bilateral CTS. L knee scope. Mild arthritis hands. Current History Elective L total knee replacement Reviewed History: Yes Social History Home: Single Level Current Living Status: Spouse Entry Into Home: Stairs With Railing Steps Into Home: 1 Steps Inside Home: 2 ADL-Prior Level of Function ADL PLOF Comments Pt reported that she was able to manage all of her basic self care needs prior to admission except that her knee hurt and it took longer at times to do tasks. She managed her home, drove and works in payroll at a local [employer] DME/Equipment: Shower Hose Senior Applications Architect, Tub/Shower, Toilet/Riser OT Current Status Subjective Pt seen in room, up in bed, agreeable to OT. Pain 10-11/10 in knee when CPM is moving. Appearance Alert, cooperative Mental Status/Objective Patient Orientation: Person, Place, Time, Situation Attachments: IV Current Glasses/Contacts: Yes Hearing Aids: No Dentures/Partials: No Hand Dominance: Left Upper Extremity ROM Grossly WFL bilat Upper Extremity Strength Grossly 5/5 bilat ADL-Treatment ADL-Current Pt reported that she has had no difficulty feeding herself. She goes to the bathroom with SBA and has no difficulty getting on/off taller toilet. She hasn' t tried regular clothing but anticipates difficulty tying shoes. Pt educ on use of elastic shoe laces. Also pt educ on using BSC over toilet or toilet riser when she goes home. Pt educ modified technique for getting in/out of bathtub. Functional [place] Measure 0=Not Assessed/NA 4=Minimal Assistance 1=Total Assistance 5=Supervision or Setup 2=Maximal Assistance 6=Modified [place] 3=Moderate Assistance 7=Complete IndependenceIRFPAI Quality Coding Scale 6 Independent with activity with or without an assistive device 5 Patient requires set up or clean up by helper. Patient completes activity by themselves 4 Supervision or touching assist (CGA). [place] provide cues , steadying assist 3 The helper provides less than half the effort to complete the activity 2 The helper provides more than half the effort to complete the activity 1 Dependent. The helper does all the effort to complete an activity 7 Patient refused to complete or attempt activity 9 The patient did not perform the activity before the current illness or injury 88 Not attempted due to Medical conditions or safety concerns Education OT Patient Education: Modified ADL techniques, Purpose of tx/functional activities, Rehab process, Use of adapted equipment Teaching Recipient: Patient Teaching Methods: Discussion Response to Teaching: Verbalize Understanding OT Short Term Goals Short Term Goals Transfers (B,C,W/C) (FIM): 5 OT Wind Operations Supervisor Goals Senior Living Goals Time Frame: Jan 17, 2018 Eating (FIM): 7 Grooming(FIM): 6 Bathing(FIM): 5 Upper Body Dressing(FIM): 5 Lower Body Dressing(FIM): 5 Toileting(FIM): 6 Toilet/Commode Transfer(FIM): 6 Shower Transfer(FIM): 5 Additional Goals: 1-Demonstrate ADL Tasks, 2-Verbalize Understanding, 3- ImproveStrength/Iram 1=Demonstrate adherence to instructed precautions during ADL tasks. 2=Patient will verbalize/demonstrate understanding of assistive devices/ modifications for ADL. 3=Patient will improve strength/tolerance for activity to enable patient to perform ADL's. OT Education/Plan Problem List/Assessment Assessment: Dependent Transfers, Impaired Self-Care Skills Pt would benefit from skilled OT to increase her independence in basic self care to allow her to safely return home with family support. Discharge Recommendations Plan/Recommendations: Continue POC Therapy D/C Recommendations: Home w/ Family Support Treatment Plan/Plan of Care Treatment,Training & Education: Yes Patient would benefit from OT for education, treatment and training to promote independence in ADL's, mobility, safety and/or upper extremity function for ADL' s. Plan of Care: ADL Retraining, Functional Mobility Treatment Duration: Jan 17, 2018 Frequency: 3 times per week Estimated Hrs Per Day: .5 hour per day Agreement: Yes Rehab Potential: Good Time/GCodes Start Time: 14:00 Stop Time: 14:20 Total Time Billed (hr/min): 20 Billed Treatment Time visit, 20 minutes evaluation low intensity LIBBY CHILDERS OT Jan 15, 2018 15:45
[2018-01-15 16:15] VITALS: BP 109/56
[2018-01-15 20:00] VITALS: BP 121/58
[2018-01-16 00:02] VITALS: BP 132/59
[2018-01-16 04:02] VITALS: BP 130/62
[2018-01-16] MEDS: oxyCODONE/APAP 5/325MG (PERCOCET 5) TABLET PO PRN ×5 (06:09→16:18)
[2018-01-16] MEDS: MULTIVIT W/MINERALS TAB (THERAGRAN M) PO SCH (06:09)
[2018-01-16 06:34] LABS: HEMOGLOBIN 9.7 G/DL (11.5-16.0)
--- NOTE | 2018-01-16 07:09 | Progress Note-Standard ---
Standard Progress Note Progress Notes/Assess & Plan Date Seen by a Provider: Jan 16, 2018 Time Seen by a Provider: 07:08 Progress/Assessment & Plan post op check no complaints denies paresthesias radiographs--HW well positioned without fracture LLE--2 plus DP and PT pulse with brisk cap refill. Intact DF and PF of toes and ankle. Sensation intact throughout s/p LTKA mobilize as able Final Diagnosis no complaints Vital Signs Date Time Temp Pulse Resp B/P (MAP) Pulse Ox O2 Delivery O2 Flow Rate FiO2 01/16/18 04:02 98.3 99 18 130/62 (84) 95 Room Air 01/16/18 00:02 98.4 97 18 132/59 (83) 96 Room Air 01/15/18 21:00 18 01/15/18 21:00 Room Air 01/15/18 20:00 98.6 95 18 121/58 (79) 95 Room Air 01/15/18 16:15 98.2 92 18 109/56 (73) 96 Room Air 01/15/18 12:00 99.4 92 16 111/56 (74) 95 Room Air 01/15/18 08:47 Room Air 01/15/18 08:37 99.7 107 16 112/50 (70) 100 Room Air I & O 01/16/18 07:00 Intake Total 2310 ml Output Total 1800 ml Balance 510 ml Laboratory Tests Test 01/16/18 06:20 Range/Units Hemoglobin 9.7 L 11.5-16.0 G/DL Hematocrit 31 L 35-52 % LLE--incision clean and dry. No calf tenderness. Neg Madison's s/p LTKA doing well DC later today if doing well MAGDY SAMSON MD Jan 16, 2018 07:09
--- NOTE | 2018-01-16 07:14 | DISCHARGE SUMMARY ---
DATE OF SERVICE: DIAGNOSIS: Left knee primary osteoarthritis. PROCEDURE: Left total knee arthroplasty. SUMMARY: The patient is a 57-year-old female who underwent a left total knee arthroplasty on the day of admission. Postoperatively, she did very well. At the time of discharge, her wound was clean and dry. She had no calf tenderness. Negative Homans sign. She has cleared physical therapy. She was tolerating a diet well and tolerating pain with oral pain medication. CONDITION ON DISCHARGE: Good. DISCHARGE DIET: Regular. FOLLOWUP: Followup is in three weeks. ACTIVITY: Weightbearing as tolerated with a walker. DISCHARGE MEDICATIONS: Percocet as needed for pain and aspirin one per day for 4 weeks. Job ID: [id number] DocumentID: [id number] Dictated Date: 01/16/2018 07:06:40 Solvent Process Extractor Operator Date: 01/16/2018 07:14:23 Dictated By: MAGDY SAMSON MD
[2018-01-16] MEDS ORDERED: morphine INJ 4 MG/ML 1 ML (VIAL/SYRINGE) IVP PRN (07:15)
[2018-01-16 08:00] VITALS: BP 122/59
[2018-01-16] MEDS: SENNA W/DOCUSATE (SENOKOT S) TABLET PO SCH (08:07)
[2018-01-16] MEDS: ENOXAPARIN 30 MG/0.3 ML (LOVENOX) SYR SC SCH (08:07)
[2018-01-16] MEDS ORDERED: ASPIRIN E.C. 81 MG (ECOTRIN) TAB PO SCH (09:00)
--- NOTE | 2018-01-16 10:59 | Physical Therapy Daily Note ---
PT Daily Note-Current Subjective Pt. stats she is so pleased that she has no pain to speak of and is feeling so much stronger and better Pain Numeric Pain Scale: 0-No Pain Mental Status Patient Orientation: Normal For Age Transfers Functional Traill Measure 0=Not Assessed/NA 4=Minimal Assistance 1=Total Assistance 5=Supervision or Setup 2=Maximal Assistance 6=Modified Traill 3=Moderate Assistance 7=Complete IndependenceIRFPAI Quality Coding Scale 6 Independent with activity with or without an assistive device 5 Patient requires set up or clean up by helper. Patient completes activity by themselves 4 Supervision or touching assist (CGA). [place] provide cues , steadying assist 3 The helper provides less than half the effort to complete the activity 2 The helper provides more than half the effort to complete the activity 1 Dependent. The helper does all the effort to complete an activity 7 Patient refused to complete or attempt activity 9 The patient did not perform the activity before the current illness or injury 88 Not attempted due to Medical conditions or safety concerns in out bed and chair all Mod I. Weight Bearing Right Lower Extremity: Right Full Weight Bearing Left Lower Extremity: Left Weight Bearing/Tolerated Gait Training Gait Assistive Device: FWW [id number] SBA no LOB, instructions for equal step length, heel strike ,knee flexion, toe off etc , pt. then with more normalized gait Stair Training Stair Training: Handrails/: 2 handrails up down 4 steps with instruction in sequence with good safety and demonstrated good technique Exercises Supine Ex: Ankle pumps, Quad Set, Heel Slides, Short Arc Quads, Straight leg raise (x7 indep) Supine Reps: 15 Seated Therapy Exercises: Ankle pumps, Sit to stand, Long arc quads, Hip flexion Seated Reps: 12 NuStep Minutes: 10 NuStep Workload: 1 Treatments emphasis on knee extension and flexion on Nustep Assessment Current Status: Good Progress 10 to 68 degrees active ROM PT Short Term Goals Short Term Goals Time Frame: Jan 21, 2018 Transfers (B,C,W/C) (FIM): 5 Gait (FIM): 4 Gait Distance Comment: >200' Gait Level of Assist: 4 Gait Assistive Device: FWW PT Plan Treatment/Plan Treatment Plan: Continue Plan of Care Treatment Plan: Bed Mobility, Education, Functional Activity Iram, Functional Strength, Gait, Safety, Therapeutic Exercise, Transfers Treatment Duration: Jan 21, 2018 Frequency: 11 times per week Estimated Hrs Per Day: .25 hour per day (15-30') Patient and/or Family Agrees t: Yes Safety Risks/Education Patient Education: Gait Training, Transfer Techniques, Steps, Correct Positioning, Disease Process, Safety Issues Teaching Recipient: Patient Teaching Methods: Demonstration, Discussion Response to Teaching: Verbalize Understanding, Return Demonstration, Reinforcement Needed Time/GCodes Time In: 835 Time Out: 900 Total Billed Treatment Time: 25 Total Billed Treatment 1,GT15m,EX10m G Codes Necessary: No JOSE TORIBIO RELAY ADJUSTER Jan 16, 2018 10:59
--- NOTE | 2018-01-16 11:00 | Occupational Ther Daily Note ---
OT Current Status-Daily Note Subjective Pt alert, lying in bed with CPM on L LE. Pt agrees to therapy. No c/o pain. States that she will be going home when her gets off work at 4pm. Mental Status/Objective Patient Orientation: Person, Place, Time, Situation Functional Traverse Measure 0=Not Assessed/NA 4=Minimal Assistance 1=Total Assistance 5=Supervision or Setup 2=Maximal Assistance 6=Modified Traverse 3=Moderate Assistance 7=Complete Traverse ADL-Treatment Pt given elastic shoe laces and place in shoes. Educated and demonstrated donning shoes. Pt declined to attempt due to L LE in CPM. Discussed and educated pt on safety with FWW at home and bathtub transfers. Pt verbalized understanding of all topics. After therapy, pt lying in bed with call light/ phone in reach. All needs met in room. Education OT Patient Education: Safety issues, Transfer techniques, Use of adapted equipment Teaching Recipient: Patient Teaching Methods: Demonstration, Discussion Response to Teaching: Verbalize Understanding OT Short Term Goals Short Term Goals Transfers (B,C,W/C) (FIM): 5 1=Demonstrate adherence to instructed precautions during ADL tasks. 2=Patient will verbalize/demonstrate understanding of assistive devices/ modifications for ADL. 3=Patient will improve strength/tolerance for activity to enable patient to perform ADL's. OT Industrial Hygiene Technician Goals [facility] Goals Time Frame: Jan 17, 2018 Eating (FIM): 7 Grooming(FIM): 6 Bathing(FIM): 5 Upper Body Dressing(FIM): 5 Lower Body Dressing(FIM): 5 Toileting(FIM): 6 Toilet/Commode Transfer(FIM): 6 Shower Transfer(FIM): 5 Additional Goals: 1-Demonstrate ADL Tasks, 2-Verbalize Understanding, 3- ImproveStrength/Iram 1=Demonstrate adherence to instructed precautions during ADL tasks. 2=Patient will verbalize/demonstrate understanding of assistive devices/ modifications for ADL. 3=Patient will improve strength/tolerance for activity to enable patient to perform ADL's. OT Education/Plan Problem List/Assessment Pt would benefit from skilled OT to increase her independence in basic self care to allow her to safely return home with family support. Discharge Recommendations Plan/Recommendations: Discharge/Goals Met Treatment Plan/Plan of Care Patient would benefit from OT for education, treatment and training to promote independence in ADL's, mobility, safety and/or upper extremity function for ADL' s. Plan of Care: ADL Retraining, Functional Mobility Treatment Duration: Jan 17, 2018 Frequency: 3 times per week Estimated Hrs Per Day: .5 hour per day Agreement: Yes Rehab Potential: Good Time/GCodes Start Time: 10:30 Stop Time: 10:45 Total Time Billed (hr/min): 15 Billed Treatment Time 1 visit-FA 1 (15 min) TRE MARTINEZ Jan 16, 2018 11:00
[2018-01-16 12:31] VITALS: BP 128/61
--- NOTE | 2018-01-16 13:37 | Physical Therapy Daily Note ---
PT Daily Note-Current Subjective Pt. pleasant and agrees toRx. Looking forward to going home later today Pain Numeric Pain Scale: 0-No Pain Mental Status Patient Orientation: Normal For Age Transfers Functional [place] Measure 0=Not Assessed/NA 4=Minimal Assistance 1=Total Assistance 5=Supervision or Setup 2=Maximal Assistance 6=Modified [place] 3=Moderate Assistance 7=Complete IndependenceIRFPAI Quality Coding Scale 6 Independent with activity with or without an assistive device 5 Patient requires set up or clean up by helper. Patient completes activity by themselves 4 Supervision or touching assist (CGA). [place] provide cues , steadying assist 3 The helper provides less than half the effort to complete the activity 2 The helper provides more than half the effort to complete the activity 1 Dependent. The helper does all the effort to complete an activity 7 Patient refused to complete or attempt activity 9 The patient did not perform the activity before the current illness or injury 88 Not attempted due to Medical conditions or safety concerns all TRFs Mod I Weight Bearing Right Lower Extremity: Right Full Weight Bearing Left Lower Extremity: Left Weight Bearing/Tolerated Gait Training 300ft x 2 FWW Mod I observed no LOB, equal step length, slow with concentration on heel strike and toe off and good fluid stability Exercises Supine Ex: Ankle pumps, Quad Set, Glut sets, Heel Slides, Short Arc Quads, Straight leg raise Supine Reps: 20 Assessment Current Status: Good Progress 5-72 degrees AROM PT Short Term Goals Short Term Goals Time Frame: Jan 21, 2018 Transfers (B,C,W/C) (FIM): 5 Gait (FIM): 4 Gait Distance Comment: >200' Gait Level of Assist: 4 Gait Assistive Device: FWW PT Plan Treatment/Plan Treatment Plan: Continue Plan of Care Treatment Plan: Bed Mobility, Education, Functional Activity Iram, Functional Strength, Gait, Safety, Therapeutic Exercise, Transfers Treatment Duration: Jan 21, 2018 Frequency: 11 times per week Estimated Hrs Per Day: .25 hour per day (15-30') Patient and/or Family Agrees t: Yes Safety Risks/Education Patient Education: Gait Training, Transfer Techniques Time/GCodes Time In: 1305 Time Out: 1335 Total Billed Treatment Time: 30 Total Billed Treatment 1,GT20m,EX10m G Codes Necessary: No JOSE TORIBIO LITHOGRAPHIC PRESS FEEDER Jan 16, 2018 13:37
[2018-01-16 16:59] VITALS: BP 128/61
== END 2018-01-16 16:59 | disposition home health service (06) | DRG 470 ==
LOC: SURG 05:55 → 4TH 10:28
PROVIDERS: ADMIT Orthopaedic Surgery; ATTEND Orthopaedic Surgery
PROC: 0SRD0J9 Replacement of Left Knee Joint with Synthetic Substitute, Cemented, Open Approach (ICD-10-PCS; principal; 2018-01-14 07:32)
DX: M17.12 Unilateral primary osteoarthritis, left knee (principal)
CPT/HCPCS: 36415; 73560; 85014; 85018; 86850; 86900; 86901; 94664

== ENCOUNTER 2018-04-01 16:18 | Outpatient (RCR) | payer OTHER ==
[~2018-04-01 16:18] MED LIST: OXYC1TAB87 PO
== END 2018-04-01 17:00 | disposition home or self-care (01) ==
PROVIDERS: ATTEND Orthopaedic Surgery
DX: Z47.1 Aftercare following joint replacement surgery (principal); Z96.652 Presence of left artificial knee joint

== ENCOUNTER → 2018-05-11 | Outpatient (CLI) | payer OTHER ==
--- NOTE | 2018-05-11 11:39 | Diagnostic Imaging Report ---
INDICATION: Routine screening. COMPARISON: 05/06/2017 and 05/02/2016. TECHNIQUE: 2D and 3D bilateral screening mammography was performed with CAD. FINDINGS: Scattered fibroglandular densities are identified bilaterally. The parenchymal pattern is stable. No dominant mass or malignant-appearing microcalcifications are seen. There are benign calcifications bilaterally. The axillae are unremarkable. IMPRESSION: No mammographic features suspicious for malignancy are identified. ACR BI-RADS Category 2: Benign findings. Result letter will be mailed to the patient. Note: At least 10% of breast cancer is not imaged by mammography. Dictated by: Dictated on workstation # [id number]
== END ==
LOC: RAD 08:22
PROVIDERS: ATTEND Family Medicine
DX: Z12.31 Encounter for screening mammogram for malignant neoplasm of breast (principal)
CPT/HCPCS: 77067

== ENCOUNTER → 2019-05-12 | Outpatient (CLI) | payer OTHER ==
--- NOTE | 2019-05-12 09:26 | Diagnostic Imaging Report ---
INDICATION: Routine screening. Comparison is made with prior mammogram 05/11/2018 and 05/06/2017. 2-D and 3-D bilateral screening mammography was performed with CAD. Scattered fibroglandular densities are identified bilaterally. There are benign calcifications in both breasts. No dominant mass or malignant appearing microcalcifications are seen. Axillae are unremarkable. IMPRESSION: BI-RADS Category 2 No mammographic features suspicious for malignancy are identified. Dictated by: Dictated on workstation # [id number]
== END ==
LOC: RAD 07:27
PROVIDERS: ATTEND Family Medicine
DX: Z12.31 Encounter for screening mammogram for malignant neoplasm of breast (principal)
CPT/HCPCS: 77067

== ENCOUNTER → 2020-05-17 | Outpatient (CLI) | payer OTHER ==
--- NOTE | 2020-05-17 10:37 | Diagnostic Imaging Report ---
INDICATION: Routine screening. Comparison is made prior exam from 05/12/2019 and 05/11/2018. 2-D and 3-D bilateral screening mammography was performed with CAD. Scattered fibro-glandular densities are identified bilaterally. There are benign calcifications in both breasts. No mass or malignant appearing microcalcifications are seen. Axillae are unremarkable. IMPRESSION: BI-RADS Category 2 No mammographic features suspicious for malignancy are identified. ACR BI-RADS Category 2: Benign findings. Result letter will be mailed to the patient. Note: At least 10% of breast cancer is not imaged by mammography. Dictated by: Dictated on workstation # [id number]
== END ==
LOC: RAD 07:30
PROVIDERS: ATTEND Family Medicine
DX: Z12.31 Encounter for screening mammogram for malignant neoplasm of breast (principal)
CPT/HCPCS: 77063; 77067

== ENCOUNTER → 2021-05-23 | Outpatient (CLI) | payer OTHER ==
--- NOTE | 2021-05-24 09:25 | Diagnostic Imaging Report ---
Digital mammogram bilateral screening This study was compared to the prior exam of 05/17/2020, 05/12/2019 and 05/11/2018. At this time, there are no current complaints. The current study was also evaluated with a Computer Aided Detection (CAD) system. FINDINGS: There are scattered fibroglandular densities in both breasts which could obscure a lesion. Overall, there does not appear to have been any significant change when compared to the prior exam. No primary or secondary sign of malignancy is noted. IMPRESSION: There is no radiographic evidence for malignancy. ACR category 1 ACR BI-RADS Category 1: Negative. Result letter will be mailed to the patient. Note: At least 10% of breast cancer is not imaged by mammography. Dictated by: Dictated on workstation # [id number]
== END ==
LOC: RAD 07:30
PROVIDERS: ATTEND Family Medicine
DX: Z12.31 Encounter for screening mammogram for malignant neoplasm of breast (principal)
CPT/HCPCS: 77063; 77067

== ENCOUNTER → 2022-05-29 | Outpatient (CLI) | payer OTHER ==
--- NOTE | 2022-05-29 14:40 | Diagnostic Imaging Report ---
EXAMINATION: 3D bilateral screening mammogram with CAD. INDICATION: Screening. COMPARISON: This study was compared to the prior exams of 05/23/2021, 05/17/2020, and 05/12/2019. PERSONAL HISTORY: At this time, there are no current complaints. FINDINGS: At this time, there are no current complaints. There are scattered fibroglandular densities in both breasts which could obscure a lesion. Overall, there does not appear to have been any significant change when compared to the prior exam. No primary or secondary sign of malignancy is noted. IMPRESSION: There is no radiographic evidence for malignancy. ACR BI-RADS Category 1: Negative. Result letter will be mailed to the patient. Note: At least 10% of breast cancer is not imaged by mammography. Dictated by: Dictated on workstation # [id number]
== END ==
LOC: RAD 07:30
PROVIDERS: ATTEND Family Medicine
DX: Z12.31 Encounter for screening mammogram for malignant neoplasm of breast (principal)
CPT/HCPCS: 77063; 77067